=== PATIENT | male | born 1965 | race Caucasian/White ===

== ENCOUNTER 2017-02-15 08:28 | Day surgery (SDC) | payer BC ==
--- NOTE | 2017-02-15 09:11 | ED ---
Abdominal Pain/Male - HPI Summary HPI Summary: 51 male present with complaints of his old, uncomplicated hernia becoming red and painful beginning Wednesday02/10/17. Patient states he has had both an inguinal and umbilical hernia for the past couple of years however has not had an issues with them until now. Inguinal hernia without complaint. States the pain of umbilical hernia increases when bending, palpation and changing positions. Patient also states redness has increased over the past couple of days to the lower part of his abdomen. States he has been unable to push it in and he usually is able. Denies fever/chills, nausea, vomiting, feeling ill. LBM yesterday and normal without blood. Has been eating and drinking however hasn't since 12am last night. Has not taken anything for pain. States he is comfortable when not moving. No other complaints. No urinary or genitalia symptoms. PMHx significant for asthma, sleep apnea and high cholesterol. - History of Current Complaint Chief Complaint: EDAbdPain Stated Complaint: ABD PAIN/BELLY BUTTON RED Time Seen by Provider: 02/15/17 08:49 Hx Obtained From: Patient Onset/Duration: Sudden Onset, Lasting Days, Still Present, Worse Since Timing: Constant Severity Initially: Mild Severity Currently: None Pain Intensity: 0 Pain Scale Used: 0-10 Numeric Location: Umbilical Radiates: No Character: Dull - with movement pain increases Aggravating Factor(s): Movement Alleviating Factor(s): Position Associated Signs And Symptoms: Negative: Back Pain, Constipation, Blood in Stool , Urinary Symptoms, Decreased Appetite, Nausea, Vomiting - Allergies/Home Medications Allergies/Adverse Reactions: Allergies Allergy/AdvReac Type Severity Reaction Status Date / Time No Known Allergies Allergy Verified 02/15/17 08:49 PMH/Surg Hx/FS Hx/Imm Hx Endocrine/Hematology History: Denies: Hx Diabetes Cardiovascular History: Reports: Hx Hypercholesterolemia, Hx Hypertension Respiratory History: Reports: Hx Asthma - A CHILD, BUT USES INHALER, Hx Sleep Apnea - Surgical History Surgery Procedure, Year, and Place: none - Immunization History Immunizations Up to Date: Yes Infectious Disease History: No Infectious Disease History: Denies: Traveled Outside the [place] in Last 30 Days - Family History Known Family History: Positive: None - Social History Alcohol Use: None Substance Use Type: Reports: None Smoking Status (MU): Never Smoked Tobacco Review of Systems Constitutional: Negative Cardiovascular: Negative Respiratory: Negative Positive: Abdominal Pain - hernia Positive: Arthralgia Positive: Other - erythema of abdomen/hernia Neurological: Negative All Other Systems Reviewed And Are Negative: Yes Physical Exam Triage Information Reviewed: Yes Vital Signs On Initial Exam: Initial Vitals Temp Pulse Resp BP Pulse Ox 98.1 F 57 16 147/90 98 02/15/17 08:39 02/15/17 08:39 02/15/17 08:39 02/15/17 08:39 02/15/17 08:39 Vital Signs Reviewed: Yes Appearance: Positive: Well-Appearing, No Pain Distress Skin: Positive: Warm, Skin Color Reflects Adequate Perfusion, Dry, Erythema @ - umbilical abdomen and lower abdomen surrounding umbilical hernia, obviously visualized. blanachable, Other - rest of skin exam normal. Negative: Cold, Tender, Cyanosis @, Pale Head/Face: Positive: Normal Head/Face Inspection Eyes: Positive: Conjunctiva Clear ENT: Positive: Hearing grossly normal, Pharynx normal Neck: Positive: Supple, Nontender, No Lymphadenopathy Respiratory/Lung Sounds: Positive: Clear to Auscultation, Breath Sounds Present. Negative: Rales, Rhonchi, Wheezes Cardiovascular: Positive: Normal, RRR, Pulses are Symmetrical in both Upper and Lower Extremities. Negative: Murmur, Rub Abdomen Description: Positive: No Organomegaly, Soft, Hernia @ - umbilical, non reducibile, appears strangulated with surrounding erythema, blanchable and warm to touch, Other: - tender on palpation of umblical hernia. Negative: Bruit, CVA Tenderness (R), CVA Tenderness (L), Guarding, Peritoneal Signs, Pulsatile Mass Bowel Sounds: Positive: Present, Hypoactive Musculoskeletal: Positive: Normal, Strength/ROM Intact Neurological: Positive: Normal, Sensory/Motor Intact, Alert, Oriented to Person Place, Time, CN Intact II-III, Reflexes Intact, Normal Gait Psychiatric: Positive: Affect/Mood Appropriate - Suzette Coma Scale Coma Scale Total: 15 Diagnostics - Vital Signs Vital Signs Temp Pulse Resp BP Pulse Ox 02/15/17 08:51 97.5 F 63 14 137/74 98 02/15/17 08:39 98.1 F 57 16 147/90 98 - Laboratory Result Diagrams: 02/15/17 09:30 02/15/17 09:30 Lab Statement: Any lab studies that have been ordered have been reviewed, and results considered in the medical decision making process. Abdominal Pain Fem Course/Dx - Course Course Of Treatment: Patient was comfortable and did not need pain management at this time. Denies nausea and vomiting. Obtained basic lab and lactic acid. Due to PE findings and HPI appears to be suffering from incarcerated umbilical hernia. Spoke with Seun at 09:20 who evaluated patient in ED. Will be admitted and taken to surgery today. Normal labs. - Diagnoses Differential Diagnosis/HQI/PQRI: Bowel Obstruction, Other - incarcerated hernia Provider Diagnoses: Incarcerated umbilical hernia - Provider Notifications Discussed Care Of Patient With: Dr Kohli Time Discussed With Above Provider: 09:20 Instructed by Provider To: Admit As Inpatient - surgery today Discharge - Discharge Plan Condition: Good Disposition: ADMITTED TO [facility]
[2017-02-15 09:44] LABS: Hematocrit 45 % (42-52); Hemoglobin 15.3 g/dl (14.0-18.0); Mean Corpuscular HGB Conc 34 g/dl (31-36); Mean Corpuscular Hemoglobin 32 pg (27-31); Mean Corpuscular Volume 95 fL (80-94); Mean Platelet Volume 8 um3 (7.4-10.4); Red Blood Count 4.77 10^6/ul (4.0-5.4); Red Cell Distribution Width 14 % (10.5-15); White Blood Count 6.6 10^3/ul (3.5-10.8)
[2017-02-15] MEDS ORDERED: HYDROmorphone* 1 MG/ML 1 ML SYR IV PRN ×2 (09:52→11:49)
[2017-02-15] MEDS ORDERED: Ondansetron INJ* 2 MG/ML VIAL IV PRN (09:52)
[2017-02-15] MEDS ORDERED: Famotidine IV* 10 MG/ML 2 ML (20 mg) IV SLOW PU ONE (09:56)
[2017-02-15] MEDS ORDERED: Albuterol 2.5 MG/3 ML NEB.SOL* (0.083%) INH PRN (09:57)
[2017-02-15 09:58] LABS: Albumin 3.9 g/dL (3.2-5.2); BUN/Creatinine Ratio 11.7 (8-20); C Reactive Protein 19.87 mg/L (< 5.00); Calcium 9.1 mg/dL (8.6-10.3); EGFR African American 82.1 (>60); EGFR Non-African American 63.8 (>60); Globulin 3.3 g/dL (2-4); Total Bilirubin 0.7 mg/dL (0.2-1.0); Total Protein 7.2 g/dL (6.4-8.9)
[2017-02-15] MEDS ORDERED: fentaNYL* 50 MCG/ML 2 ML VIAL (100 MCG VIAL) ONE ×2 (10:10→11:21)
[2017-02-15] MEDS ORDERED: Midazolam* 1 MG/ML 5 ML VIAL (5 MG) ONE (10:11)
[2017-02-15] MEDS ORDERED: Famotidine IV* 10 MG/ML 2 ML (20 mg) ONE (10:27)
[2017-02-15] MEDS ORDERED: Bupivacaine 0.5% W/EPI SDV* 10 ML VIAL INJ ONE (10:41)
[2017-02-15] MEDS ORDERED: Lidocaine 1% INJ* 10 MG/ML 30 ML SDV ONE (10:41)
[2017-02-15] MEDS ORDERED: CEFAZOLIN 2 GM IVPB SCH (11:00)
[2017-02-15] MEDS ORDERED: Rocuronium* 10 MG/ML VIAL ONE (11:06)
[2017-02-15] MEDS ORDERED: Ondansetron INJ* 2 MG/ML VIAL ONE (11:34)
[2017-02-15] MEDS ORDERED: Lidocaine 2% PF * 5 ML VIAL ONE (11:34)
[2017-02-15] MEDS ORDERED: Propofol* 10 MG/ML 20 ML BTL IV PUSH ONE (11:34)
[2017-02-15] MEDS ORDERED: Succinylcholine* 20 MG/ML 10 ML VIAL ONE (11:34)
[2017-02-15] MEDS ORDERED: Dexamethasone IV* 4 MG/ML 1 ML (4 MG) ONE (11:34)
[2017-02-15] MEDS ORDERED: Ketorolac INJ* 30 MG/ML 1 ML VIAL ONE (11:34)
[2017-02-15] MEDS ORDERED: oxyCODONE TAB* 5 MG TAB PO PRN (11:49)
[2017-02-15] MEDS ORDERED: Acetaminophen TAB* 325 MG PO PRN (11:49)
[2017-02-15] MEDS ORDERED: DiMENhydriNATE IV* 50 MG/ML VIAL IV PUSH PRN (11:49)
[2017-02-15] MEDS ORDERED: oxyCODONE/Acetamin 5/325 MG* TAB PO PRN (12:21)
--- NOTE | 2017-02-15 12:24 | PN ---
Progress Note - Progress Note Date of Service: 02/15/17 Note: Brief Operative Note: Pre-op: Incarcerated umbilical hernia Post-op: Same Procedure: Umbilical hernia repair with primary closure and omentectomy Surgeon: Dr. Kohli Gas Pipe Layer: Bradly Obregon Anaesthesia: General and local EBL: Minimal Catheter: None Drains: None Fluids: 1000 cc LR Specimen: Omentum Findings: See dictated op note
--- NOTE | 2017-02-15 12:57 | HP ---
AMENDED REPORT NOW INCLUDES COSIGNER DESIGNATION - ESIGNED BEFORE ADJUSTMENT ADMISSION HISTORY AND PHYSICAL: DATE OF ADMISSION: 02/15/17 PATIENT OF: Dr. Gonsalo Kohli * (DICTATED BY MALISSA SENIOR) CHIEF COMPLAINT: Umbilical pain and redness. HISTORY OF PRESENT ILLNESS: Mr. Sweet is a pleasant 51-year-old gentleman who presented to the emergency room earlier this morning with complaints of worsening umbilical pain. The patient notes that he has a known umbilical hernia for the past 10 years or so that he has been able to reduce every time it bulges out. He was seen multiple times by his primary care physician on a yearly physical and hernia has been examined before and was uncomplicated. He also notes that he also has a left inguinal hernia that bulges out some time, but he is able to reduce it as well. He notes that for the past 5 days or so he noticed increased pain and firmness to the umbilical area. It started about last Wednesday when he was unable to reduce his hernia and noticed increased redness and firmness to the area as well. He denies any fever or chills. He has been able to eat and drink every single day and noticed no changes in his bowel movements. He has not taken anything for pain at home. Given his ongoing symptoms, he presented to the emergency room for further evaluation of probable incarcerated umbilical hernia. He denies any urinary or genital symptoms. He otherwise is relatively healthy middle-age gentleman with no past surgical history. PAST MEDICAL HISTORY: Significant for asthma, sleep apnea, hyperlipidemia, and gastroesophageal reflux disease. PAST SURGICAL HISTORY: None. CURRENT MEDICATIONS: His medications at home include: 1. Albuterol inhaler 108 mcg every 6 hours as needed for shortness of breath. 2. Advair Diskus inhaler twice daily. 3. Rosuvastatin 10 mg tablets p.o. daily. ALLERGIES: He has no known drug allergies. FAMILY HISTORY: Noncontributory. 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 He is a nonsmoker, who denies alcohol intake. REVIEW OF SYSTEMS: See HPI, otherwise negative. He denies any headache, dizziness, blurred vision, or double vision. No sore throat, shortness of breath, chest pain, or palpitation. No back pain, flank pain, hematuria, dysuria, or urinary frequency. He denies any inguinal pain, scrotal pain, or swelling, fever, chills, night sweats, or recent weight loss. PHYSICAL EXAMINATION GENERAL: He is a pleasant, short-statured, middle-aged gentleman, appears slightly anxious but in no acute distress or discomfort at the time of admission. VITAL SIGNS: His most recent set of vitals was temperature of 97.5, pulse of 61 , blood pressure of 137/74, and respirations of 17, and O2 sat of 98% on room air. HEENT: Sclerae anicteric. PERRLA. EOMs intact. Oropharynx is pink and moist with no exudate. Dentition with multiple teeth decay and cavities noted. NECK: Supple. Trachea midline. No cervical adenopathy or thyromegaly. LUNGS: Clear to auscultation bilaterally. No rales, wheezes, or rhonchi noted. HEART: Regular rate and rhythm. Normal S1 and S2 without rubs, murmurs, or gallops. BACK: Normal curvature. No CVA tenderness. ABDOMEN: Soft, firm, and round. There is a very visible incarcerated umbilical hernia noted with surrounding erythema and some firmness on exam measuring approximately 5 cm in diameter. The area is mildly tender on palpation. I was unable to reduce the hernia at this time in the ED. There is no rebound tenderness noted, guarding, or rigidity. No other hernias or masses noted. The patient was examined in both supine and standing opposition and I could not appreciate any left inguinal hernia at this time. No hepatosplenomegaly noted. EXTREMITIES: Without cyanosis, clubbing, or edema. NEUROLOGIC: Grossly intact. There is moderate speech disability noted upon taking history of the patient, but he is alert and oriented and the intellectual part is definitely intact. RECTAL: Exam deferred at this time. LABORATORY WORKUP: CBC in the emergency room revealed normal white count of 6000, hemoglobin of 15.3, hematocrit of 45, and platelets of 221. The reminder of the laboratory workup including CMP, urinalysis, and lactic acid is pending at this time. IMPRESSION: A 51-year-old gentleman with signs and symptoms consistent with incarcerated umbilical hernia. PLAN: I went on and discussed with the patient the need to repair his incarcerated hernia. Multiple attempts were made to reduce the hernia at this time that were unsuccessful. The patient is clinically stable with no evidence of strangulation at this time; however, I discussed with him the need to proceed with surgery on an urgent basis to avoid any immediate complication of this hernia. The rationale, indications, risks, and benefits of surgery were discussed with him today. Risks include but not limited to infection, bleeding , or injury to adjacent structures. I also discussed with him the possibility of using a mesh to repair his hernia given the fact of his work environment and his need to lift heavy weight for his job duties. The patient was accompanied by his fiancee and they seem to understand everything involved and wish to proceed. We will admit him for observation under surgical services and keep him n.p.o. for now. He will be covered with antibiotics as well as GI and DVT prophylaxis and likely be taken to the operating room later this afternoon for repair of incarcerated umbilical hernia. We will follow him up accordingly. MALISSA SENIOR [id number]/[facility] #: [id number] [place]
[2017-02-15 14:01] VITALS: BP 114/101
[2017-02-15] MEDS ORDERED: Mometasone/Formoter 200/5 MDI INH SCH (21:00)
--- NOTE | 2017-02-16 02:41 | OP ---
DATE OF OPERATION: 02/15/17 - ROOM #AA-1 DATE OF : 65 SURGEON: Gonsalo Kohli MD CHANGE COORDINATOR: MALISSA Worrell ANESTHESIOLOGIST: Nirali Sesay MD ANESTHESIA: General with local. PRE-OP DIAGNOSIS: Incarcerated umbilical hernia. POST-OP DIAGNOSIS: Incarcerated umbilical hernia with incarcerated ischemic omentum within the hernia sac. There was no bowel involvement. OPERATIVE PROCEDURE: Open primary repair of an incarcerated umbilical hernia. INDICATIONS: Mr. Jsoé Miguel Sweet is a 51-year-old gentleman who has a longstanding umbilical hernia. This has not been completely reducible over the past several years, but not causing him discomfort. Middle of last week, he developed some firmness, slight increase in size, becoming more and more tender over the last several days. Since Wednesday of last week, he noted some redness on the skin inferior to this area. He has had no nausea or vomiting or fevers. His bowels have been working and he had been eating. The pain worsened, he presented to the emergency room, was noted to have an incarcerated umbilical hernia with reddened skin overlying the umbilical skin as well as some mild erythema in an area of about 10 cm x 15 cm inferior to the umbilicus itself. He had a normal white blood cell count, no fever, no generalized abdominal discomfort. My recommendation to him and his is emergent repair of an incarcerated umbilical hernia and he understands and gives his consent to proceed. The procedure was discussed with the patient and his significant other. The risks but not limited to bleeding, infection, intraabdominal abscess formation, injury to peritoneal and retroperitoneal structures, possibility of use of mesh , hernia recurrence, possible bowel resection depending on findings,risk of anesthesia, deep vein thrombosis, pulmonary embolism, as well as recovery times , and possible hospital stay were all discussed. ESTIMATED BLOOD LOSS: Minimal. WOUND CLASSIFICATION: I. DRAINS: None. MESH USED: None. COMPLICATIONS: None. DESCRIPTION OF PROCEDURE: Written informed consent was obtained, the abdomen was marked with indelible ink and preoperative antibiotics were administered. The patient was taken to the operating room, placed in the supine position. Sequential compression devices and a warming blanket were applied. General anesthesia was administered. The abdomen was prepped and draped in the usual sterile fashion. Time-out verification was completed. 0.25% Marcaine mixed with 1% lidocaine with epinephrine was infiltrated extensively on the umbilicus. A semicircular incision was made just below the umbilicus. This was carried down to the subcutaneous tissue, here we identified a hernia sac, which was quite firm and discolored and we were able to excise the umbilical skin off the hernia sac down to the fascial defect which was quite firm. This was obvious it was quite a small hernia defect, I did not feel I was going to be able to reduce what appeared to be omentum, thus hernia sac was opened. Here noted was some dusky discolored omentum. I did not feel that this was going to recover after reduction, also was not able to be reduced due to the small hernia defect, thus an extraabdominal portion of omentum was then amputated at the base with two separate Argelia clamps and ligated with 2-0 Polysorb ties. Once this was done, the omentum was easily reduced. The peritoneal sac was also quite discolored and probably even necrotic. It appeared to be ischemic and this was excised. There was some preperitoneal fat that was reduced back into the abdominal cavity without difficulty. This fascial defect was no more than 1 cm and the fascial edges appeared to be intact. I did not feel that mesh was indicated due to its size and would have been difficult placing this, thus the fascial defect was closed with three interrupted 0 Polysorb sutures placed in transverse orientation. Hemostasis was assured. The wound was closed in layers of 3-0 and 4-0 Polysorb sutures. Steri-Strips and sterile dressings were applied. The patient tolerated the procedure well, was taken to the recovery room in stable condition. [id number]/[facility] #: [id number] [facility]
--- NOTE | 2017-02-20 05:24 | DS ---
DISCHARGE SUMMARY: DATE OF ADMISSION: 02/15/17 DATE OF DISCHARGE: 02/15/17 PATIENT OF: Gonsalo Kohli MD * (DICTATED BY MALISSA SENIOR) ADMISSION DIAGNOSIS: Incarcerated umbilical hernia. DISCHARGE DIAGNOSIS: Incarcerated umbilical hernia. ADMITTING PHYSICIAN: Gonsalo Kohli MD CONSULTATIONS: None. PROCEDURE: Open repair of incarcerated umbilical hernia. BRIEF MEDICAL HISTORY: Mr. Sweet is a pleasant 51-year-old gentleman, who presented to the emergency room earlier on the morning of 02/15/17 with complaints of worsening umbilical pain. The patient notes that he has an umbilical hernia for the past 10 years or so that never bothered him like that day. He states that he has been able to reduce the hernia every time it bulges out but noticed in the last week or so that it is getting slightly bigger and firmer. He noticed also associated redness and last night he had increasing pain and he was unable to reduce his hernia. He presented to the emergency room , and on examination, he was noted to have an incarcerated umbilical hernia for which we were asked to see the patient for further evaluation and to discuss possible surgery. HOSPITAL COURSE: The patient was directly admitted from the emergency room and was taken to the operating room later that afternoon where he had an open repair of incarcerated umbilical hernia. He did extremely well after the surgery and was able to start clear liquid diet in recovery. His pain has significantly improved and he was found during the surgery to have a very small umbilical hernia defect that was repaired using sutures. The patient was discharged home from Recovery in a stable condition. DISCHARGE MEDICATIONS: Include, 1. Albuterol inhaler 108 mcg every 6 hours as needed for shortness of breath. 2. Advair Diskus inhaler twice daily. 3. Rosuvastatin 10 mg p.o. daily. 4. Percocet 5/325 one to two tablets every 6 hours as needed for pain. PROBLEM LIST: Incarcerated umbilical hernia, status post open repair of incarcerated umbilical hernia on 02/15/17. MALISSA SENIOR [id number]/[facility] #: [id number] [facility]
== END 2017-02-15 14:23 | disposition home or self-care (01) ==
LOC: OR 08:28 → AA 09:52 → SSU 09:52 → UNDOADMOB 09:52 → OR 14:23 → UNDODISOB 14:23
PROVIDERS: ATTEND Surgery
DX: K42.0 Umbilical hernia with obstruction, without gangrene (principal); R10.9 Unspecified abdominal pain; M25.50 Pain in unspecified joint; I10 Essential (primary) hypertension; J45.909 Unspecified asthma, uncomplicated; G47.33 Obstructive sleep apnea (adult) (pediatric)
CPT/HCPCS: 36415; 80053; 83605; 83690; 85025; 86140; 88305; 99282; A9270-GY; J0330; J0690; J1100; J1885; J2001; J2250; J2405; J2704; J3010